=== PATIENT | male | born 1975 | race American Indian/Alaskan Native ===

== ENCOUNTER 2020-06-24 15:40 | Emergency (ER) | payer SELFPAY ==
[2020-06-24] MEDS ORDERED: KETOROLAC 30 MG/1 ML INJ ONE (16:25)
[2020-06-24] MEDS ORDERED: KETOROLAC 30 MG/1 ML INJ IM ONE (16:26)
--- NOTE | 2020-06-24 16:28 | Event Note ---
ED Screening Note Date of service: 06/24/20 Time: 16:27 ED Screening Note: 45-year-old male patient presents to the emergency department with complaints of right upper back pain status post mechanical fall. Patient states that he slipped while he was taking a shower today. There was no resulting head injury or loss of consciousness. No history of prior back injuries. General: Awake, appropriately interactive, no acute distress. Neck: Supple. Full range of motion intact. Cardiovascular: Normal peripheral perfusion. Pulmonary: No respiratory distress. Patient is speaking normally without use of accessory muscles. Breath sounds equal and present bilaterally. Breathing is non-paradoxical. Skin: No apparent rashes or lesions. Neurological: No facial asymmetry. Speech is clear. Follows commands. Patient is alert and oriented. Musculoskeletal: Moves all four extremities spontaneously with normal range of motion. Back: Tenderness to palpation along midline thoracic spine and right paraspinal thoracic region with overlying abrasion. Psych: Cooperative. Appropriate mood and affect. This initial assessment/diagnostic orders/clinical plan/treatment(s) is/are subject to change based on patients health status, clinical progression and re- assessment by fellow clinical providers in the ED. Further treatment and workup at subsequent clinical providers discretion. Patient/guardian urged not to elope from the ED as their condition may be serious if not clinically assessed and managed.
--- NOTE | 2020-06-24 17:08 | Cat Scan Report ---
. CT thoracic spine wo con INDICATION / CLINICAL INFORMATION: 45 years Male; MAIN. Back pain TECHNIQUE: Axial CT images of the thoracic spine were obtained. Sagittal and coronal reformatted images were pro duced. All CT scans at this location are performed using CT dose reduction for ALARA by means of auto mated exposure control. COMPARISON: None available. FINDINGS: POST-SURGICAL CHANGES: None. ALIGNMENT: Minimal dextroscoliosis of the thoracic spine noted. VERTEBRAE: No signs of fracture. Vertebral bodies are grossly normal in height throughout. Anterior s pondylosis seen at various levels. Costovertebral, costotransverse, and facet joints demonstrate mild, scattered areas of degenerative c hange. Most marked findings are at T3-4, where calcified ligamentum flavum hypertrophy, along with f acet hypertrophy, results in osseous foraminal narrowing bilaterally-left greater than right. Finding s could affect the exiting T3 nerves. No other signs of significant foraminal narrowing appreciated. INTERVERTEBRAL DISCS: No significant disc space narrowing. No definitive signs of dominant herniation or canal stenosis appreciated. PARASPINAL SOFT TISSUES: No significant abnormality. ADDITIONAL FINDINGS: None. IMPRESSION: 1. No signs of epidural fluid collection or discitis. 2. Degenerative changes as described above. Signer Name: Raj Leblanc MD, III Signed: 06/24/2020 5:03 PM Workstation Name: [employer]
--- NOTE | 2020-06-24 18:33 | Emergency Department Report ---
ED General Adult HPI - General Chief complaint: Fall Stated complaint: BACK PAIN DUE TO A FALL Time Seen by Provider: 06/24/20 18:20 Source: patient Mode of arrival: Ambulatory Limitations: No Limitations - History of Present Illness Initial comments: 45-year-old male patient presents to the emergency department with complaints of right upper back pain status post mechanical fall. Patient states that he slipped while he was taking a shower today. There was no resulting head injury or loss of consciousness. No history of prior back injuries. No other injuries sustained during the fall. He has been ambulatory without assistance since the fall. Denies headache, neck pain, saddle anesthesia, bladder/bowel incontinence, urinary retention, chest pain, shortness of breath. Denies other complaints at this time. Severity scale (0 -10): 10 - Related Data Previous Rx's Medication Instructions Recorded Last Taken Type Lidocaine [Lidoderm] 1 each TP PRN PRN #20 adh..patch 06/24/20 Unknown Rx Naproxen 500 mg PO BID #20 tablet 06/24/20 Unknown Rx Allergies Allergy/AdvReac Type Severity Reaction Status Date / Time No Known Allergies Allergy Unverified 06/24/20 16:19 ED Review of Systems ROS: Stated complaint: BACK PAIN DUE TO A FALL Other details as noted in HPI Other: CARDIOVASCULAR: Negative for chest pain. PULMONARY: Negative for dyspnea. GASTROINTESTINAL: Negative for abdominal pain. MUSCULOSKELETAL: Positive for back pain. NEUROLOGICAL: Negative for headache. INTEGUMENTARY: Negative for ecchymosis. ED Past Medical Hx - Past Medical History Previous Medical History?: No - Surgical History Past Surgical History?: No - Medications Home Medications: Home Medications Medication Instructions Recorded Confirmed Last Taken Type Lidocaine [Lidoderm] 1 each TP PRN PRN #20 adh..patch 06/24/20 Unknown Rx Naproxen 500 mg PO BID #20 tablet 06/24/20 Unknown Rx ED Physical Exam - General Limitations: No Limitations - Other Other exam information: General: Awake, appropriately interactive, no acute distress. Neck: Supple. Full range of motion intact. Cardiovascular: Normal peripheral perfusion. Pulmonary: No respiratory distress. Patient is speaking normally without use of accessory muscles. Breath sounds equal and present bilaterally. Breathing is non-paradoxical. No evidence of flail chest. Skin: No apparent rashes or lesions. Neurological: No facial asymmetry. Speech is clear. Follows commands. Patient is alert and oriented. Musculoskeletal: Moves all four extremities spontaneously with normal range of motion. Back: Tenderness to palpation along midline thoracic spine and right paraspinal thoracic region with overlying abrasion. No step-offs. No saddle anesthesia. Ambulatory without assistance. Psych: Cooperative. Appropriate mood and affect. ED Course Vital Signs 06/24/20 06/24/20 16:22 18:45 Temperature 98.6 F Pulse Rate 79 59 L Respiratory 20 15 Rate Blood Pressure 155/115 Blood Pressure 154/108 [Right] O2 Sat by Pulse 96 100 Oximetry ED Medical Decision Making - Radiology Data CT thoracic spine without acute process, per radiologist. - Medical Decision Making Differential diagnosis including but not limited to: sprain, strain, fracture, contusion, dislocation, pneumothorax, hemothorax Patient presents to emergency department with complaints of traumatic mid-back pain status post mechanical fall. Vital signs are stable. No hypoxia, no respiratory distress. Breath sounds equal and present bilaterally. He is neurovascularly intact throughout. Ambulatory without assistance. CT thoracic spine without acute process. No other injuries. History and exam findings most suggestive of soft tissue injury. Patient will be discharged home with appropriate symptomatic treatment and referred to local primary care provider for close outpatient follow-up. Patient expressed understanding and is agreeable to plan of care. Strict return precautions provided. Repeat exam is unremarkable and benign. History, exam, diagnostic testing, and current condition do not suggest worrisome pathology to warrant further testing, continued ED treatment, admission, or surgical evaluation at this point. Given the low probability of a significant medical illness, it would be more likely to result in harm than benefit to perform further testing at this stage. Discussed findings, presumptive diagnosis, need for follow-up and specific signs/symptoms that should prompt immediate return to the emergency department. Instructions were explained in detail to the patient in addition to giving written discharge information. Patient expressed understanding and was given the opportunity to ask questions, all of which were satisfactorily answered prior to discharge home. Critical care attestation.: If time is entered above; I have spent that time in minutes in the direct care of this critically ill patient, excluding procedure time. ED Disposition Clinical Impression: Contusion of back wall of thorax Qualifiers: Encounter type: initial encounter Thoracic wall location detail: right Qualified Code(s): S20.221A - Contusion of right back wall of thorax, initial encounter Disposition: DC-01 TO HOME OR SELFCARE Is pt being admited?: No Does the pt Need Aspirin: No Condition: Stable Instructions: Contusion, [id number] Additional Instructions: Take Tylenol every 4 hours as needed for pain. Take Naprosyn twice daily with food as needed for pain. Apply Lidoderm patches to affected area as needed for pain. Apply ice to affected area as needed for pain. Follow-up with primary care provider this week. Call tomorrow to schedule an appointment. Return to the emergency department immediately for new or worsening symptoms. Specifically, return to the emergency department immediately for increased pain, difficulty breathing, loss of consciousness, wheezing, difficulty walking, difficulty using the bathroom, or any other concerns. Prescriptions: Lidocaine [Lidoderm] 1 each TP PRN PRN #20 adh..patch PRN Reason: Pain , Severe (7-10) Naproxen 500 mg PO BID #20 tablet Referrals: LEA IRBY MD [Staff Physician] - 3-5 Days Time of Disposition: 18:33
[2020-06-24 19:02] VITALS: BP 154/108
== END 2020-06-24 18:45 | disposition home or self-care (01) ==
LOC: ED 15:40
DX: S20.221A Contusion of right back wall of thorax, initial encounter (principal); Z79.899 Other long term (current) drug therapy; W18.30XA Fall on same level, unspecified, initial encounter; Y93.89 Activity, other specified; Y92.89 Other specified places as the place of occurrence of the external cause; Y99.8 Other external cause status
CPT/HCPCS: 72128; 96372; 99283; J1885